=== PATIENT | male | born 1980 | race Hispanic/Latino ===

== ENCOUNTER 2021-12-19 19:16 | Emergency (ER) | payer MEDICAID, OTHER ==
[~2021-12-19] VITALS: Ht 177.8 cm; Wt 113.4 kg
[2021-12-19] MEDS ORDERED: OXYCODONE HCL 5 MG TAB PO ONE (20:00)
[2021-12-19] MEDS ORDERED: GABAPENTIN 300 MG CAPSULE PO SCH (20:00)
[2021-12-19] MEDS ORDERED: CYCLOBENZAPRINE HCL 10 MG TABLET PO ONE (20:00)
[2021-12-19] MEDS ORDERED: IBUP-1493 PO (20:57)
[2021-12-19] MEDS ORDERED: CYCL-309 PO (20:57)
[2021-12-19] MEDS ORDERED: GABA300C PO (20:57)
[2021-12-19 21:00] VITALS: BP 131/50
== END 2021-12-19 21:49 | disposition home or self-care (01) ==
LOC: EDH 19:16
DX: M54.50 Low back pain, unspecified (principal)